=== PATIENT | female | born 1985 | race Caucasian/White ===

== ENCOUNTER 2016-06-23 12:13 | Emergency (ER) | payer OTHER ==
[2016-06-23 12:33] VITALS: BMI 33.5
[2016-06-23 12:38] VITALS: RESP 18; O2SAT 99
--- NOTE | 2016-06-23 12:52 | C.PDOC ---
History Of Present Illness 30 y/o female c/o pain and swelling with fb sensation to right great toe x 3 days with no preceding injury or recent pedicure. no fever. Time Seen by Provider: 06/23/16 12:41 Chief Complaint (Nursing): Lower Extremity Problem/Injury Past Medical History Reviewed: Historical Data, Nursing Documentation, Vital Signs Vital Signs: Last Vital Signs Temp 99.3 F 06/23/16 13:52 Pulse 73 06/23/16 13:52 Resp 18 06/23/16 13:52 BP 102/67 06/23/16 13:52 Pulse Ox 99 06/23/16 13:54 - Medical History PMH: Asthma, Bronchitis Surgical History: Tonsillectomy, - [facility] Procedures APPLICATION OF SPLINT (06/30/14) EXTRACTION OF POC, LOW CERVICAL, OPEN APPROACH (12/10/15) VACCINATION NEC (01/09/14) Family History: States: Unknown Family Hx - Social History Hx Tobacco Use: No Hx Alcohol Use: No Hx Substance Use: No - Immunization History Hx Tetanus Toxoid Vaccination: No Hx Influenza Vaccination: No Hx Pneumococcal Vaccination: No Review Of Systems Constitutional: Negative for: Fever, Chills Skin: Positive for: Other Physical Exam - Physical Exam Appears: Non-toxic, No Acute Distress Skin: Normal Color, Warm, Dry, Other (erythema swelling and tender to lateral aspect to right great toe, no discharge) ED Course And Treatment - Laboratory Results Urine POC: Negative O2 Sat by Pulse Oximetry: 99 - Other Rad toe Interpretation: no fb seen in toe - Incision & Drainage Of Abscess Anesthesia: Lidocaine 1% Prep Used: Betadine Procedure: Incised W/Scalpel Blade#: (11), Drained Pus (drained paronychia of right great toe) Medical Decision Making Medical Decision Making: upreg xray to r/o fb i And d paronychia Disposition Counseled Patient/Family Regarding: Studies Performed, Diagnosis, Need For Followup, Rx Given - Disposition Disposition: HOME/ ROUTINE Disposition Time: 13:52 Condition: IMPROVED Additional Instructions: Soak toe in warm water 3-4 times a day. Tylenol for jorge. Take antibiotics as prescribed. Follow up with your doctor in a few days. Return for any worsening symptoms., Prescriptions: Sulfamethoxazole/Trimethoprim [Bactrim Ds Tablet] 1 each PO BID #14 tablet Instructions: Paronychia (ED) Forms: Gen Discharge Inst Uzbek Print Language: PASHTO - Clinical Impression Clinical Impression: Paronychia of toe of right foot
[2016-06-23] MEDS ORDERED: Lidocaine 1% Inj (20ml) INFIL ONE (13:14)
[2016-06-23] MEDS ORDERED: Lidocaine Hydrochloride 5 ML INJ ONE (13:20)
[2016-06-23 13:56] VITALS: BP 102/67; PULSE 73; TEMP 99.3
--- NOTE | 2016-06-23 15:21 | RAD ---
PROCEDURE: Radiographs of the right great toe. TECHNIQUE:: AP radiograph of the right foot, with oblique and lateral view of the right great toe. COMPARISON: None available FINDINGS: BONES: No acute displaced fracture identified. JOINTS: No dislocation. SOFT TISSUES: Soft tissue swelling. No radiopaque foreign body identified. OTHER FINDINGS: None. IMPRESSION: Soft tissue swelling. No radiopaque foreign body identified.
== END 2016-06-23 13:59 | disposition home or self-care (01) ==
LOC: C.ER 12:13
DX: L03.031 Cellulitis of right toe (principal)

== ENCOUNTER 2016-08-06 20:52 | Emergency (ER) | payer OTHER ==
[2016-08-06 20:53] VITALS: BMI 33.5
[2016-08-06 21:12] VITALS: BP 125/98; PULSE 71; RESP 20; TEMP 97.6; O2SAT 96
[2016-08-06] MEDS ORDERED: Oxycodone/Acetaminophen 5/325 mg Tab PO STA (21:22)
[2016-08-06] MEDS ORDERED: Oxycodone/Acetaminophen 5/325 mg Tab ONE (21:38)
--- NOTE | 2016-08-06 21:49 | C.PDOC ---
History Of Present Illness 30 yo female c/o R 4th finger pain since yesterday. Pt notes that she went to grab her , her finger got stuck and she her a crack. Pt was evaluated at the time, dx with finger fracture and splinted. Pt notes that she wasnt given hand specialist referral and is requesting one. Also notes that pain persists though taking medication as prescribed- oxycodone. Also notes occasional numbness. No new trauma. 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 History/Exam Limitations: language barrier Onset/Duration Of Symptoms: Hrs Current Symptoms Are (Timing): Still Present Past Medical History Vital Signs: Last Vital Signs Temp 97.6 F 08/06/16 21:09 Pulse 71 08/06/16 21:09 Resp 20 08/06/16 21:09 BP 125/98 H 08/06/16 21:09 Pulse Ox 96 08/06/16 21:49 - Medical History PMH: Asthma, Bronchitis Surgical History: Tonsillectomy, - [facility] Procedures APPLICATION OF SPLINT (06/30/14) EXTRACTION OF POC, LOW CERVICAL, OPEN APPROACH (12/10/15) VACCINATION NEC (01/09/14) Family History: States: Unknown Family Hx - Social History Hx Tobacco Use: No Hx Alcohol Use: No Hx Substance Use: No - Immunization History Hx Tetanus Toxoid Vaccination: No Hx Influenza Vaccination: No Hx Pneumococcal Vaccination: No Physical Exam - Physical Exam Appears: Well, Non-toxic, No Acute Distress Skin: Warm, Ecchymosis (some ecchymosis to the mid phalanx) Head: Atraumatic, Normacephalic Eye(s): bilateral: Normal Inspection, EOMI Nose: Normal Oral Mucosa: Moist Neck: Normal ROM, Supple Chest: Symmetrical Respiratory: No Accessory Muscle Use Extremity: No Normal ROM (decresed ROM secondary to pain), Tenderness (TTP, no decreased sensation noted.), Capillary Refill (< 2 sec), Swelling Pulses: Left Radial: Normal, Right Radial: Normal Neurological/Psych: Oriented x3, Normal Sensation ED Course And Treatment O2 Sat by Pulse Oximetry: 96 - Other Rad Finger XR X-Ray: Interpreted by Me, Viewed By Me Interpretation: (+) mid phalanx 4th finger XR Progress Note: Percocet ordered and ice. FInge rresplinted by RN. Instructed RICE and follow up with hand specialist in 1-2 days. Case discussed with Dr Mancilla who reviewed the XR and agreed upon plan and discharge. Disposition - Disposition Referrals: Chris Lake MD [Staff Provider] - [facility] [Outside] Disposition: HOME/ ROUTINE Disposition Time: 21:46 Condition: STABLE Additional Instructions: Vaya a young mdico o la clnica en 2-5 galloway sin falta, para mas evaluacin. [place] los medicamentos julio c indicado. Volver a la royal de emergencia en cualquier momento si los sntomas persisten o empeoran. Prescriptions: oxyCODONE/Acetaminophen [Percocet 5/325 mg Tab] 1 tab PO QID PRN #15 tab PRN Reason: Pain Instructions: Finger Fracture (ED) Print Language: BRAZILIAN - Clinical Impression Clinical Impression: Finger fracture
--- NOTE | 2016-08-07 10:31 | RAD ---
Right hand 4th digit five views History: Fracture. Comparison: None available. Findings: Transverse oblique fracture through head of the 4th middle phalanx with questionable extension to the DIP joint space. More limited evaluation of the remainder of the digits as the fingers are somewhat flexed. Impression: Transverse oblique fracture through head of the 4th middle phalanx with questionable extension to the DIP joint space.
== END 2016-08-06 22:24 | disposition home or self-care (01) ==
LOC: C.ER 20:52
DX: S62.624 Displaced fracture of middle phalanx of right ring finger (principal); X58.XXXD Exposure to other specified factors, subsequent encounter

== ENCOUNTER 2016-10-04 12:43 | Emergency (ER) | payer OTHER ==
[2016-10-04 12:43] VITALS: BMI 30.8
[2016-10-04 12:54] VITALS: BP 119/84; PULSE 83; RESP 18; TEMP 98.7; O2SAT 98
[2016-10-04] MEDS ORDERED: Sodium Chloride 0.9% 1,000 ML IV ONE (13:27)
== END 2016-10-04 13:52 | disposition left against medical advice (07) ==
LOC: C.ER 12:43
DX: R10.2 Pelvic and perineal pain (principal); Z02.9 Encounter for administrative examinations, unspecified

== ENCOUNTER 2016-11-28 18:11 | Emergency (ER) | payer OTHER ==
[2016-11-28 18:11] VITALS: BMI 30.8
[2016-11-28] MEDS ORDERED: Albuterol-Ipratrop 3 mg / 0.5 (3 ml) UD ONE (18:35)
[2016-11-28] MEDS ORDERED: Albuterol-Ipratrop 3 mg / 0.5 (3 ml) UD INH STA (18:48)
[2016-11-28 20:21] LABS: BASO # 0.1 K/uL (0.0-0.2); BASO % 0.7 % (0.0-2.0); EOS # 0.2 K/uL (0.0-0.7); EOS % 2.1 % (0.0-4.0); LYMPH # 1.4 K/uL (1.0-4.3); LYMPH % 13.6 % (20.0-40.0); MEAN CELL VOLUME 89.2 fL (81.0-99.0); MEAN CORPUSCULAR HEMOGLOBIN 30.3 pg (27.0-31.0); MEAN PLATELET VOLUME 8.7 fL (7.2-11.7); MONO # 0.3 K/uL (0.0-0.8); MONO % 3.4 % (0.0-10.0); RED CELL DISTRIBUTION WIDTH 14.2 % (11.5-14.5)
[2016-11-28 20:30] LABS: CHLORIDE 106 mmol/L (98-107); POTASSIUM 3.2 mmol/L (3.6-5.2); SODIUM 142 mmol/L (132-148)
[2016-11-28 20:32] LABS: BILIRUBIN,TOTAL 0.4 mg/dL (0.2-1.3); GFR AFRICAN-AMERICAN > 60
[2016-11-28 20:33] LABS: ALB/GLOB RATIO 1.2 (1.0-2.1); ALKALINE PHOSPHATASE 81 U/L (38-126); ALT/SGPT 38 U/L (9-52); AST/SGOT 17 U/L (14-36); BLOOD UREA NITROGEN 14 mg/dL (7-17); CARBON DIOXIDE 24 mmol/L (22-30); GLUCOSE,RANDOM 128 mg/dL (65-105); TOTAL PROTEIN 6.6 g/dL (6.3-8.3)
[2016-11-28 20:34] LABS: CALCIUM 9.3 mg/dl (8.6-10.4)
[2016-11-28] MEDS ORDERED: Potassium Chloride 20 mEq ER Tab PO STA (20:44)
--- NOTE | 2016-11-28 20:45 | C.PDOC ---
History Of Present Illness 31 year old female presents to the ED with complaints of shortness of breath for two weeks. Patient states initially her inhaler was helping but lately it offers no relief. She notes persistent coughing fits with occasional posttussive vomiting. Patient denies fever, chest pain, or other complaints at this time. Time Seen by Provider: 11/28/16 18:27 Chief Complaint (Nursing): Cough, Cold, Congestion History Per: Patient History/Exam Limitations: no limitations Onset/Duration Of Symptoms: Days (2 weeks ) Current Symptoms Are (Timing): Still Present Sick Contacts (Context): None Associated Symptoms: Vomiting (due to coughing). denies: Fever, Chills, Diarrhea Past Medical History Reviewed: Historical Data, Nursing Documentation, Vital Signs Vital Signs: Last Vital Signs Temp 98.2 F 11/28/16 20:59 Pulse 65 11/28/16 20:59 Resp 18 11/28/16 20:59 BP 111/62 11/28/16 20:59 Pulse Ox 97 11/28/16 22:05 - Medical History PMH: Asthma, Bronchitis Surgical History: Tonsillectomy, - [facility] Procedures APPLICATION OF SPLINT (06/30/14) EXTRACTION OF POC, LOW CERVICAL, OPEN APPROACH (12/10/15) VACCINATION NEC (01/09/14) Family History: States: Unknown Family Hx - Social History Hx Tobacco Use: No Hx Alcohol Use: No Hx Substance Use: No - Immunization History Hx Tetanus Toxoid Vaccination: No Hx Influenza Vaccination: No Hx Pneumococcal Vaccination: No Review Of Systems Constitutional: Negative for: Fever, Chills Cardiovascular: Negative for: Chest Pain, Palpitations Respiratory: Positive for: Cough, Shortness of Breath Gastrointestinal: Positive for: Vomiting (posttussive). Negative for: Nausea, Abdominal Pain, Diarrhea Physical Exam - Physical Exam Appears: Non-toxic, No Acute Distress Skin: Warm, Dry Head: Atraumatic, Normacephalic Eye(s): bilateral: Normal Inspection, PERRL, EOMI Ear(s): Bilateral: Normal Nose: Normal, No Discharge Oral Mucosa: Moist Throat: Normal, No Erythema, No Exudate Neck: Normal ROM, Supple Chest: Symmetrical, No Deformity Cardiovascular: Rhythm Regular Respiratory: Decreased Breath Sounds, No Rales, No Rhonchi Neurological/Psych: Oriented x3, Normal Speech ED Course And Treatment - Laboratory Results Result Diagrams: 11/28/16 20:13 11/28/16 20:13 O2 Sat by Pulse Oximetry: 97 (room air ) - Radiology CXR: Interpreted by Me, Viewed By Me CXR Interpretation: Yes: No Acute Disease Progress Note: Chest X-ray was ordered and patient was given nebulizer treatment. PERC rule negative. On reassessment, patient is resting comfortably with no wheezing, chest pain, or retractions. She is laying flat, on cell phone in no evidence of discomfort. PT states she feels better and is comfortable to go home. Oxygen saturation and breath sounds have improved. Patient is alert and oriented x 3. Patient was advised to follow up with physician/clinic in 1- 2 days and return to ED if symptoms worsen or persist Disposition - Disposition Disposition: HOME/ ROUTINE Disposition Time: 20:45 Condition: STABLE Additional Instructions: Vaya a young mdico o la clnica en 1-3 galloway sin falta, para mas evaluacin. [place] los medicamentos julio c indicado. Volver a la royal de emergencia en cualquier momento si los sntomas persisten o empeoran. Prescriptions: Albuterol HFA [Ventolin HFA 90 mcg/actuation (8 g)] 2 puff IH [id number] #1 puff Azithromycin [Zithromax] 250 mg PO DAILY #6 tab Benzonatate [Tessalon Perle] 100 mg PO TID PRN #15 capsule PRN Reason: Cough predniSONE [Prednisone] 40 mg PO DAILY #8 tab Instructions: Acute Bronchitis (ED) Forms: Ubalo ([place] Rican) Print Language: TURKISH - Clinical Impression Clinical Impression: Bronchitis - Scribe Statement The provider has reviewed the documentation as recorded by the Scribe Selam Acosta All medical record entries made by the Scribe were at my direction and personally dictated by me. I have reviewed the chart and agree that the record accurately reflects my personal performance of the history, physical exam, medical decision making, and the department course for this patient. I have also personally directed, reviewed, and agree with the discharge instructions and disposition.
[2016-11-28] MEDS ORDERED: Potassium Chloride 20 mEq ER Tab PO ONE (20:54)
[2016-11-28 21:00] VITALS: BP 111/62; PULSE 65; RESP 18; TEMP 98.2
[2016-11-28 21:20] VITALS: O2SAT 97
--- NOTE | 2016-11-29 09:38 | RAD ---
HISTORY: Shortness of breath COMPARISON: 03/26/2016. TECHNIQUE: Chest PA and lateral FINDINGS: LUNGS: The lungs are well inflated and clear. PLEURA: No significant pleural effusion identified. No pneumothorax apparent. CARDIOVASCULAR: Normal. OSSEOUS STRUCTURES: No significant abnormalities. VISUALIZED UPPER ABDOMEN: Normal. OTHER FINDINGS: None. IMPRESSION: No active pulmonary disease.
== END 2016-11-28 21:00 | disposition home or self-care (01) ==
LOC: C.ER 18:11
DX: J40 Bronchitis, not specified as acute or chronic (principal); E87.6 Hypokalemia
CPT/HCPCS: 71020; 80053; 85025; 85378; 96374; 99284; J2930

== ENCOUNTER 2018-05-08 07:48 | Outpatient (CLI) | payer OTHER | END 2018-05-08 07:49 | disposition home or self-care (01) | LOC: C.CARD 07:48 | DX: R07.9 Chest pain, unspecified (principal); R06.02 Shortness of breath; R55 Syncope and collapse ==

== ENCOUNTER 2018-06-13 19:24 | Outpatient (CLI) | payer MEDICAID | END 2018-06-13 19:25 | disposition home or self-care (01) | LOC: C.SLEEP 19:24 | DX: G47.33 Obstructive sleep apnea (adult) (pediatric) (principal) ==